=== PATIENT | male | born 1950 | race Caucasian/White ===

== ENCOUNTER 2023-03-16 07:55 | Outpatient (CLI) | payer MEDICARE ==
[2023-03-16] MEDS ORDERED: Iopamidol 370 76% 100 ML VIAL ONE (10:29)
== END 2023-03-16 07:56 | disposition home or self-care (01) ==
LOC: CSHCT 07:55
PROVIDERS: ATTEND Specialist
DX: I63.9 Cerebral infarction, unspecified (principal)
CPT/HCPCS: 70498; 82565